=== PATIENT | male | born 1950 | race Caucasian/White ===

== ENCOUNTER → 2020-05-28 | Day surgery (SDC) | payer BC, MEDICARE ==
[~2020-05-28] MED LIST: ACTOPLUS MET 11 EAC1 PO; ALENDRONATE SOD70 MG PO; AMBIEN10 MG PO; BENZOCAINE 20% SPR 60 ML CAN ONE; CHLORTHALIDONE25 MG PO; COMBIVENT RESPIM4 GM IH; DALIRESP500 MCG PO; FENTANYL CITRATE/PF 100MCG/2 ML INJ ONE; FLOMAX0.4 MG PO; HEPARIN SOD/SOD CHLORIDE 2,000 ML ONE; IOPAMIDOL 300MG/ML 100 ML INFUS..BTL IV ONE; IOPAMIDOL 370 MG/ML 200 ML INFUS..BTL INJ ONE; KLOR-CON 1010 MEQ PO; LIDOCAINE HCL 2% LOCAL 20 ML VIAL ONE; LIDOCAINE HCL 2% LOCAL INJ 5 ML SDV VIAL INJ ONE; METOPROLOL SUCC50 MG PO; MIDAZOLAM HCL 2 MG/2 ML VIAL ONE; PREDNISONE5 MG PO; PROPOFOL IV EMULSION 10 MG/ML 20 ML VIAL ONE; SEROQUEL50 MG PO; SERTRALINE HCL100 MG PO; SIMVASTATIN40 MG PO; SODIUM CHLORIDE 0.9% 1000ML 1,000 ML ONE; SYNTHROID100 MCG PO; THEOPHYLLINE400 M1 PO; TRELEGY ELLIPT1 EACH
[2020-05-28 11:40] VITALS: BP 107/87
[2020-05-28 14:05] LABS: BASOPHILS # (AUTO) 0.1 (0.0-0.1); BASOPHILS % 0.9 % (0.0-1.0); EOSINOPHILS # (AUTO) 0.1 (0.0-0.4); EOSINOPHILS % 1.2 % (0.0-6.0); HEMATOCRIT 40.8 % (38.2-49.6); HEMOGLOBIN 13.2 g/dL (14.0-18.0); LYMPHOCYTES # (AUTO) 1.1 (1.0-3.2); MEAN CORPUSCULAR HEMOGLOBIN 33.4 pg (28-32); MEAN CORPUSCULAR HGB CONC 32.4 g/dL (31-35); MEAN CORPUSCULAR VOLUME 103.3 fL (81-99); MONOCYTES % 10.5 % (4.4-11.3); NEUTROPHILS # (AUTO) 7.4 (2.1-6.9); NEUTROPHILS % 75.5 % (38.7-80.0); PLATELET COUNT 248 x10e3/uL (140-360); RED BLOOD COUNT 3.95 x10e6/uL (4.3-5.7); RED CELL DISTRIBUTION WIDTH 13.3 % (11.7-14.4)
[2020-05-28 14:25] LABS: ALANINE AMINOTRANSFERASE 14 IU/L (0-55); ALBUMIN 3.3 g/dL (3.5-5.0); ALKALINE PHOSPHATASE 54 IU/L (40-150); ANION GAP 12.2 mmol/L (8-16); BLOOD UREA NITROGEN 10 mg/dL (7-26); BUN/CREATININE RATIO 13 (6-25); CALCIUM 8.8 mg/dL (8.4-10.2); CHLORIDE 86 mmol/L (98-107); CREATININE, SERUM 0.79 mg/dL (0.72-1.25); EST GLOMERULAR FILTRATION RATE > 60 ML/MIN (60-); GLUCOSE 123 mg/dL (74-118); POTASSIUM 3.2 mmol/L (3.5-5.1); SODIUM 137 mmol/L (136-145)
[2020-05-28 14:27] LABS: CARBON DIOXIDE 42 mmol/L (22-29)
--- NOTE | 2020-05-28 15:04 | NUR ---
ANGEL W/ DR. ADAMS 1437--IN ROOM 1439--MD IN ROOM 1440--HURRICAINE SPRAY 1441--HURRICAINE SPRAY 1451--PROBE IN 1457--PROBE OUT 1502--TO [facility] HOLDING ROOM 10 FOR RECOVERY S/P ANGEL AND TO AWAIT [facility]
[2020-05-28 16:15] VITALS: BP 114/82
--- NOTE | 2020-05-28 16:15 | NUR ---
1615 pt in rm 17 Identiferx2 [facility] .Dr Mistry NO fix Rt TR band No gross issue pain,pallor,pressure or dysrhythmia. Alert oriented and appropriate, PERRLA, respirations even and unlabored to room air. Pulses x4 extremities equal and palpable . Cap fill brisk < 3 sec. Normal neurovascular function of right wrist/hand TR band air down at 1645pm,Dc at 1730pm scheduled. Son at bedside dc papers completed Skin warm and dry integrity appears intact in general. IV left hand and presents healthy w/o s/s of infiltration or complaint. Abdomen soft and supple. pt offered toileting, denies need to urinate or defecate. Personal affects with patient. Family to be called post procedure . Pt verbalizes understanding of POC. Educated transmission rebuilder light use. bed low and locked, side rails up x2 and call light at side. Pt using personal mask for COVID-19 mitigation. -ds/rn
[2020-05-28 16:30] VITALS: BP 107/71
[2020-05-28 16:45] VITALS: BP 140/78
--- NOTE | 2020-05-28 16:45 | NUR ---
1645 RADIAL Compression removal: Initial Cuff volume 14 cc 1645p -4 cc Removed No hematoma/ bleeding noted with normal neurovascular function. 1700p -5 cc Removed No hematoma/bleeding noted with normal neurovascular function. 1715p -5 cc Removed No hematoma/ bleeding noted with normal neurovascular function. Air removal completed. Stasis achieved sterile 2x2,Tegaderm, Coban dressing No hematoma, bleeding noted with normal neurovascular function. Pt instructed on POC. Ds/Rn
[2020-05-28 17:00] VITALS: BP 122/82
--- NOTE | 2020-05-28 17:00 | NUR ---
1700 Tolerated po intake. Preparing for dc home at 1730pm. ds/rn
--- NOTE | 2020-05-28 17:19 | Operative Report ---
DATE OF PROCEDURE: 05/28/2020 SURGEON: Alexey Mistry MD INDICATIONS: 1. Coronary artery disease. 2. Aortic valve stenosis. PROCEDURES PERFORMED: 1. Ultrasound-guided access in the right radial artery with sheath placement. 2. Left heart catheterization, selective coronary angiography. 3. Conscious sedation, 35 minutes. 4. Deployment of right wrist TR band. COMPLICATIONS: None. RECOMMENDATIONS: Transfemoral aortic valve replacement. DESCRIPTION OF PROCEDURE: Access was obtained in the right radial artery using ultrasound guidance. A 6-[place] sheath was placed. Coronary angiography demonstrated mild coronary artery disease less than 20% luminal irregularities in all coronary vessels. No critical stenosis or occlusions. Excellent flow in all vessels. No intervention deemed necessary. Right wrist TR band applied. The patient discharged home the same day. Alexey Mistry MD KSB/MODL /[id number]
--- NOTE | 2020-05-28 17:30 | NUR ---
1730p---------RT---TRBAND Pt meets discharge criteria. VS wnl, alert and oriented. Pt and Family Understands discharge instruction. Overall general assess w/o gross outliers. Skin warm, dry, and intact. Right radial dressing soft w/o s/s of hematoma. + neurovascular function of right hand present. IV removed and appears distal tip is intact, staff member verifying Robbin ABREU. Pt maintains mask on for COVID 19 precautions being taken by wheel chair to awaiting car. Transfers w/o gross distress with discharge paperwork in hand.-ds/rn
== END | disposition home or self-care (01) ==
LOC: CATH LAB 11:22
PROVIDERS: ATTEND Internal Medicine Interventional Cardiology
DX: I25.118 Atherosclerotic heart disease of native coronary artery with other forms of angina pectoris (principal); I35.0 Nonrheumatic aortic (valve) stenosis; I87.2 Venous insufficiency (chronic) (peripheral); I10 Essential (primary) hypertension; E78.00 Pure hypercholesterolemia, unspecified; G47.33 Obstructive sleep apnea (adult) (pediatric); J44.9 Chronic obstructive pulmonary disease, unspecified; E11.9 Type 2 diabetes mellitus without complications; N40.0 Benign prostatic hyperplasia without lower urinary tract symptoms; F32.9 Major depressive disorder, single episode, unspecified; Z72.0 Tobacco use; Z88.2 Allergy status to sulfonamides; Z68.41 Body mass index [BMI] 40.0-44.9, adult; Z99.81 Dependence on supplemental oxygen; Z82.49 Family history of ischemic heart disease and other diseases of the circulatory system
CPT/HCPCS: 36415; 76937; 80053; 85025; 93307; 93312; 93320; 93325; 93454; C1769; C1887; J2001 ×2; J2250; J2704; J3010; J7030; Q9967 ×2; 99152

== ENCOUNTER → 2022-03-30 | Outpatient (CLI) | payer BC, MEDICARE ==
[~2022-03-30] MED LIST changes: -BENZOCAINE 20% SPR 60 ML CAN ONE; -FENTANYL CITRATE/PF 100MCG/2 ML INJ ONE; -HEPARIN SOD/SOD CHLORIDE 2,000 ML ONE; -IOPAMIDOL 300MG/ML 100 ML INFUS..BTL IV ONE; -IOPAMIDOL 370 MG/ML 200 ML INFUS..BTL INJ ONE; -LIDOCAINE HCL 2% LOCAL 20 ML VIAL ONE; -LIDOCAINE HCL 2% LOCAL INJ 5 ML SDV VIAL INJ ONE; -MIDAZOLAM HCL 2 MG/2 ML VIAL ONE; -PROPOFOL IV EMULSION 10 MG/ML 20 ML VIAL ONE; -SODIUM CHLORIDE 0.9% 1000ML 1,000 ML ONE
== END ==
LOC: LAB 11:48
PROVIDERS: ATTEND Internal Medicine
DX: I50.32 Chronic diastolic (congestive) heart failure (principal); Z20.822 Contact with and (suspected) exposure to COVID-19
CPT/HCPCS: 0223U; 36415